=== PATIENT | male | born 1985 | race Two or more races ===

== ENCOUNTER 2019-12-17 03:18 | Inpatient (IN) | payer MEDICAID, OTHER ==
[~2019-12-17] VITALS: Ht 172.7 cm; Wt 92.2 kg
[2019-12-17] MEDS ORDERED: LORazepam 2 MG/ML VIAL IM ONE ×2 (03:30→16:15)
[2019-12-17] MEDS ORDERED: DiphenhydrAMINE HCL 50 MG/ML VIAL IM ONE ×2 (03:30→16:15)
[2019-12-17] MEDS ORDERED: HALOPERIDOL LACTATE 5 MG/ML VIAL IM ONE ×2 (03:30→16:15)
[2019-12-17] MEDS ORDERED: LORazepam 2 MG TABLET PO PRN (05:45)
[2019-12-17] MEDS ORDERED: ZOLPIDEM TARTRATE 10 MG TABLET PO PRN (05:45)
[2019-12-17] MEDS ORDERED: HALOPERIDOL 5 MG TABLET PO PRN (05:45)
[2019-12-17] MEDS ORDERED: RISP4 PO (08:03)
[2019-12-17] MEDS ORDERED: DIVA125SP PO (08:03)
[2019-12-17] MEDS ORDERED: BENZ2TAB10 PO (08:03)
[2019-12-17 10:21] LABS: BASOPHILS % (AUTO) 0.3 % (0.0-2.0); EOSINOPHILS % (AUTO) 0.6 % (1.0-6.0); HEMATOCRIT 44.3 % (41-53); HEMOGLOBIN 15.3 g/dL (13.5-17.5); LYMPHOCYTES # (AUTO) 1.7 K/uL (1.0-4.8); MEAN CORPUSCULAR HEMOGLOBIN 32.4 pg (26.0-34.0); MEAN CORPUSCULAR HGB CONC 34.5 G/dL (31.0-37.0); MEAN CORPUSCULAR VOLUME 94 fL (80-100); MONOCYTES # (AUTO) 0.8 K/uL (0.1-1.0); MONOCYTES % (AUTO) 10.1 % (2.0-9.0); NEUTROPHILS # (AUTO) 5.7 K/uL (1.8-7.7); PLATELET COUNT (AUTO) 287 K/uL (150-450); RED BLOOD CELL COUNT(AUTO) 4.73 MIL/uL (4.50-5.90); RED CELL DISTRIBUTION WIDTH 12.5 % (11.5-14.5)
[2019-12-17 10:27] LABS: ANION GAP 12 mmol/L (8-16); CALCIUM, TOTAL 9.4 mg/dL (8.8-10.5); CARBON DIOXIDE 25 mmol/L (22-29); CHLORIDE 101 mmol/L (98-107); CREATININE 1.05 mg/dL (0.60-1.30); GLOMERULAR FILTR. RATE CALC > 60 mL/min (>60); GLUCOSE,RANDOM 86 mg/dL (70-110); POTASSIUM 3.5 mmol/L (3.5-5.1); SODIUM SERUM 138 mmol/L (136-145); UREA NITROGEN, BLOOD 14 mg/dL (7-18)
[2019-12-17 10:32] LABS: SALICYLATE 1.2 mg/dL (2.8-20.0)
[2019-12-17 10:33] LABS: ACETAMINOPHEN < 2 mcg/mL (10-30); ALANINE AMINOTRANSFERASE 98 U/L (12-78); ALBUMIN 4.2 g/dL (3.4-5.0); ALKALINE PHOSPHATASE 80 U/L (46-116); ASPARTATE AMINOTRANSFERASE 104 U/L (15-37); TOTAL PROTEIN, SERUM 7.9 g/dL (6.4-8.2)
[2019-12-17 11:28] VITALS: BP 137/85
[2019-12-17] MEDS: BACITRACIN 28.4 GM OINTMENT TP SCH (16:09)
[2019-12-17] MEDS ORDERED: DiphenhydrAMINE HCL 50 MG/ML VIAL ONE (16:18)
[2019-12-17] MEDS ORDERED: LORazepam 2 MG/ML VIAL ONE (16:18)
[2019-12-17] MEDS ORDERED: HALOPERIDOL LACTATE 5 MG/ML VIAL ONE (16:18)
[2019-12-17] MEDS ORDERED: ONDANSETRON HCL 4 MG TABLET PO PRN (21:15)
[2019-12-17] MEDS ORDERED: LOPERAMIDE HCL 2 MG CAPSULE PO PRN (21:15)
[2019-12-17] MEDS ORDERED: MAG HYDROX/AL HYDROX/SIMETH ES 30 ML SUSPENSION UDCUP PO PRN (21:15)
[2019-12-17] MEDS ORDERED: ALBUTEROL SULFATE HFA 90 MCG/PUFF 8 GM INHALER IH PRN (21:15)
[2019-12-17] MEDS ORDERED: IBUPROFEN 400 MG TABLET PO PRN (21:15)
[2019-12-17] MEDS ORDERED: GuaiFENesin/D-METHORPHAN [SUGAR-FREE] 200-20MG/10 ML SYRUP UDCUP PO PRN (21:15)
[2019-12-17] MEDS ORDERED: CloNIDine HCL 0.1 MG TABLET PO PRN (21:15)
[2019-12-17] MEDS ORDERED: ACETAMINOPHEN 325 MG TABLET PO PRN (21:15)
[2019-12-17] MEDS ORDERED: MAGNESIUM HYDROXIDE SUSPENSION 30 ML UDCUP PO PRN (21:15)
[2019-12-17] MEDS ORDERED: PETROLATUM,WHITE 28 GM JELLY TP PRN (21:15)
[2019-12-17] MEDS ORDERED: NICOTINE 14 MG/24 HOUR PATCH TD PRN (21:15)
[2019-12-17] MEDS ORDERED: DOCUSATE SODIUM 100 MG CAPSULE PO PRN (21:15)
[2019-12-18] MEDS: RisperiDONE 3 MG TABLET PO SCH ×2 (09:00→16:21)
[2019-12-18] MEDS: DIVALPROEX SODIUM 500 MG DR TABLET PO SCH ×2 (09:00→16:21)
[2019-12-18] MEDS: BACITRACIN 28.4 GM OINTMENT TP SCH ×2 (09:00→16:21)
[2019-12-18] MEDS: BENZTROPINE MESYLATE 2 MG TABLET PO SCH (09:00)
[2019-12-18] MEDS ORDERED: DIVA-78 PO (20:03)
[2019-12-19] MEDS: RisperiDONE 3 MG TABLET PO SCH ×2 (09:00→17:00)
[2019-12-19] MEDS: BACITRACIN 28.4 GM OINTMENT TP SCH ×2 (09:00→16:12)
[2019-12-19] MEDS: BENZTROPINE MESYLATE 2 MG TABLET PO SCH (09:00)
[2019-12-20 08:00] VITALS: BP 110/68
[2019-12-20] MEDS: BACITRACIN 28.4 GM OINTMENT TP SCH ×2 (08:55→16:12)
[2019-12-20] MEDS: RisperiDONE 3 MG TABLET PO SCH ×2 (08:56→16:11)
[2019-12-20] MEDS: BENZTROPINE MESYLATE 2 MG TABLET PO SCH (08:56)
[2019-12-20 16:10] VITALS: BP 121/73
[2019-12-21] MEDS: BACITRACIN 28.4 GM OINTMENT TP SCH ×2 (09:00→16:25)
[2019-12-21] MEDS: RisperiDONE 3 MG TABLET PO SCH ×2 (09:00→16:33)
[2019-12-21] MEDS: BENZTROPINE MESYLATE 2 MG TABLET PO SCH (09:00)
[2019-12-21 09:30] VITALS: BP 153/107
[2019-12-22] MEDS: BACITRACIN 28.4 GM OINTMENT TP SCH ×2 (09:00→18:13)
[2019-12-22] MEDS: RisperiDONE 3 MG TABLET PO SCH ×2 (09:00→17:00)
[2019-12-22] MEDS: BENZTROPINE MESYLATE 2 MG TABLET PO SCH (09:00)
[2019-12-22 20:12] VITALS: BP 141/88
[2019-12-23 08:15] VITALS: BP 125/93
[2019-12-23] MEDS: BENZTROPINE MESYLATE 2 MG TABLET PO SCH (09:00)
[2019-12-23] MEDS: RisperiDONE 3 MG TABLET PO SCH (09:00)
[2019-12-23] MEDS: BACITRACIN 28.4 GM OINTMENT TP SCH (09:06)
[2019-12-23] MEDS ORDERED: BENZ2TAB10 PO (12:51)
[2019-12-23] MEDS ORDERED: RISP3 PO (12:51)
[2019-12-23] MEDS ORDERED: NALT50TA PO (12:51)
== END 2019-12-23 14:00 | disposition home or self-care (01) | DRG 885 ==
LOC: EMS 03:18 → 3EC 10:25
PROVIDERS: ADMIT Psychiatry & Neurology Psychiatry; ATTEND Psychiatry & Neurology Psychiatry
DX: F20.9 Schizophrenia, unspecified (principal); F41.9 Anxiety disorder, unspecified; G89.29 Other chronic pain; Z59.0 Homelessness; Z91.19 Patient's noncompliance with other medical treatment and regimen
CPT/HCPCS: 51702; 70450; 96372; G0480; G0481; J1200; J1630; J2060

== ENCOUNTER 2020-01-24 12:41 | Inpatient (IN) | payer MEDICAID, OTHER ==
[~2020-01-24] VITALS: Ht 180.3 cm; Wt 89.8 kg
[~2020-01-24 12:41] MED LIST: BENZ2TAB10 PO; NALT50TA PO; RISP3 PO
[2020-01-24] MEDS ORDERED: DiphenhydrAMINE HCL 50 MG/ML VIAL IM ONE (14:45)
[2020-01-24] MEDS ORDERED: HALOPERIDOL LACTATE 5 MG/ML VIAL IM ONE (14:45)
[2020-01-24] MEDS ORDERED: LORazepam 2 MG/ML VIAL IM ONE (14:45)
[2020-01-24 14:46] LABS: BASOPHILS % (AUTO) 0.2 % (0.0-2.0); EOSINOPHILS % (AUTO) 0.3 % (1.0-6.0); HEMATOCRIT 41.8 % (41-53); HEMOGLOBIN 13.8 g/dL (13.5-17.5); LYMPHOCYTES # (AUTO) 1.2 K/uL (1.0-4.8); LYMPHOCYTES % (AUTO) 14.4 % (22.0-44.0); MEAN CORPUSCULAR HEMOGLOBIN 31.2 pg (26.0-34.0); MEAN CORPUSCULAR VOLUME 95 fL (80-100); MONOCYTES # (AUTO) 0.5 K/uL (0.1-1.0); MONOCYTES % (AUTO) 6.5 % (2.0-9.0); NEUTROPHILS # (AUTO) 6.5 K/uL (1.8-7.7); NEUTROPHILS % (AUTO) 78.6 % (40.0-70.0); PLATELET COUNT (AUTO) 367 K/uL (150-450); RED BLOOD CELL COUNT(AUTO) 4.43 MIL/uL (4.50-5.90); RED CELL DISTRIBUTION WIDTH 12.9 % (11.5-14.5)
[2020-01-24 14:58] LABS: ANION GAP 19 mmol/L (8-16); CALCIUM, TOTAL 9.9 mg/dL (8.8-10.5); CARBON DIOXIDE 22 mmol/L (22-29); CHLORIDE 99 mmol/L (98-107); CREATININE 1.54 mg/dL (0.60-1.30); GLOMERULAR FILTR. RATE CALC 52 mL/min (>60); GLUCOSE,RANDOM 165 mg/dL (70-110); POTASSIUM 3.3 mmol/L (3.5-5.1); SODIUM SERUM 140 mmol/L (136-145); UREA NITROGEN, BLOOD 13 mg/dL (7-18)
[2020-01-24 15:06] LABS: ALANINE AMINOTRANSFERASE 74 U/L (12-78); ALBUMIN 4.6 g/dL (3.4-5.0); ALKALINE PHOSPHATASE 118 U/L (46-116); ASPARTATE AMINOTRANSFERASE 47 U/L (15-37); BILIRUBIN,TOTAL 0.8 mg/dL (0.1-1.0); TOTAL PROTEIN, SERUM 8.4 g/dL (6.4-8.2)
[2020-01-24] MEDS ORDERED: ZOLPIDEM TARTRATE 10 MG TABLET PO PRN (16:15)
[2020-01-24] MEDS ORDERED: LORazepam 2 MG TABLET PO PRN (16:15)
[2020-01-24] MEDS ORDERED: HALOPERIDOL 5 MG TABLET PO PRN (16:15)
[2020-01-24] MEDS: RisperiDONE 3 MG TABLET PO SCH (20:20)
[2020-01-25 08:05] VITALS: BP 125/88
[2020-01-25] MEDS: RisperiDONE 3 MG TABLET PO SCH ×2 (08:24→16:52)
[2020-01-25] MEDS ORDERED: BENZTROPINE MESYLATE 2 MG TABLET PO SCH (09:00)
[2020-01-25 16:13] VITALS: BP 113/72
[2020-01-25] MEDS: BENZTROPINE MESYLATE 2 MG TABLET PO SCH (16:52)
[2020-01-26 08:00] VITALS: BP 109/68
[2020-01-26] MEDS: RisperiDONE 3 MG TABLET PO SCH ×3 (09:00→17:39)
[2020-01-26] MEDS: BENZTROPINE MESYLATE 2 MG TABLET PO SCH ×3 (09:00→17:39)
[2020-01-26 16:29] VITALS: BP 128/90
[2020-01-27 08:01] VITALS: BP 139/90
[2020-01-27] MEDS: RisperiDONE 3 MG TABLET PO SCH (08:06)
[2020-01-27] MEDS: BENZTROPINE MESYLATE 2 MG TABLET PO SCH (08:06)
[2020-01-27] MEDS ORDERED: BENZ2TAB10 PO (10:51)
[2020-01-27] MEDS ORDERED: RISP3 PO (10:51)
== END 2020-01-27 13:30 | disposition home or self-care (01) | DRG 885 ==
LOC: EMS 12:41 → 3EC 20:07
PROVIDERS: ADMIT Psychiatry & Neurology Psychiatry; ATTEND Psychiatry & Neurology Psychiatry
DX: F25.0 Schizoaffective disorder, bipolar type (principal); N17.9 Acute kidney failure, unspecified; E87.6 Hypokalemia; F41.9 Anxiety disorder, unspecified; G89.4 Chronic pain syndrome; Z59.0 Homelessness; Z91.19 Patient's noncompliance with other medical treatment and regimen; F19.90 Other psychoactive substance use, unspecified, uncomplicated; R74.0 Nonspecific elevation of levels of transaminase and lactic acid dehydrogenase [LDH]; R73.9 Hyperglycemia, unspecified
CPT/HCPCS: G0480; J1200; J1630; J2060

== ENCOUNTER 2020-02-14 12:27 | Inpatient (IN) | payer MEDICAID, OTHER ==
[~2020-02-14] VITALS: Ht 165.1 cm; Wt 87.5 kg
[~2020-02-14 12:27] MED LIST changes: -NALT50TA PO
[2020-02-14] MEDS ORDERED: HALOPERIDOL LACTATE 5 MG/ML VIAL IM ONE (14:00)
[2020-02-14] MEDS ORDERED: LORazepam 2 MG/ML VIAL IM ONE (14:00)
[2020-02-14] MEDS ORDERED: DiphenhydrAMINE HCL 50 MG/ML VIAL IM ONE (14:00)
[2020-02-14] MEDS ORDERED: ZOLPIDEM TARTRATE 10 MG TABLET PO PRN (15:45)
[2020-02-14] MEDS ORDERED: LORazepam 2 MG TABLET PO PRN (15:45)
[2020-02-14] MEDS ORDERED: HALOPERIDOL 5 MG TABLET PO PRN (15:45)
[2020-02-14] MEDS: BENZTROPINE MESYLATE 1 MG TABLET PO SCH ×2 (17:00→17:59)
[2020-02-14] MEDS ORDERED: INFLUENZA VIRUS VACCINE QVS 2019-20 (3YR+)/PF 60 MCG/0.5 ML SYRINGE IM ONE (17:30)
[2020-02-14] MEDS ORDERED: RisperiDONE 3 MG TABLET PO SCH (21:00)
[2020-02-15 05:18] VITALS: BP 138/97
[2020-02-15] MEDS: BENZTROPINE MESYLATE 1 MG TABLET PO SCH ×2 (09:00→16:23)
[2020-02-15 09:36] VITALS: BP 134/78
[2020-02-15] MEDS ORDERED: ACETAMINOPHEN 325 MG TABLET PO PRN (11:15)
[2020-02-15] MEDS ORDERED: GuaiFENesin/D-METHORPHAN [SUGAR-FREE] 200-20MG/10 ML SYRUP UDCUP PO PRN (11:15)
[2020-02-15] MEDS ORDERED: RisperiDONE 1 MG TABLET PO PRN (11:15)
[2020-02-15] MEDS ORDERED: PROMETHAZINE HCL 25 MG TABLET PO PRN (11:15)
[2020-02-15] MEDS ORDERED: LOPERAMIDE HCL 2 MG CAPSULE PO PRN (11:15)
[2020-02-15] MEDS ORDERED: MAGNESIUM HYDROXIDE SUSPENSION 30 ML UDCUP PO PRN (11:15)
[2020-02-15] MEDS ORDERED: TUBERCULIN, PURIFIED PROTEIN DERIVATIVE 5 TU/0.1 ML SYRINGE ID ONE (11:15)
[2020-02-15] MEDS ORDERED: HydrOXYzine PAMOATE 50 MG CAPSULE PO PRN (11:15)
[2020-02-15] MEDS ORDERED: PALIPERIDONE PALMITATE 234 MG/1.5 ML SYRINGE IM ONE (12:00)
[2020-02-15] MEDS ORDERED: PALIPERIDONE 1.5 MG ER TABLET PO PRN (12:00)
[2020-02-15] MEDS: THIAMINE HCL 100 MG TABLET PO SCH (16:23)
[2020-02-15 17:11] VITALS: BP 110/79
[2020-02-15] MEDS: PALIPERIDONE 3 MG ER TABLET PO SCH (20:21)
[2020-02-16] MEDS: BENZTROPINE MESYLATE 1 MG TABLET PO SCH ×2 (08:52→16:07)
[2020-02-16] MEDS: THIAMINE HCL 100 MG TABLET PO SCH ×2 (08:53→16:07)
[2020-02-16] MEDS: FOLIC ACID 1 MG TABLET PO SCH (08:53)
[2020-02-16] MEDS: MULTIVITAMINS WITH MINERALS, THERAPEUTIC TABLET PO SCH (08:53)
[2020-02-16] MEDS: PALIPERIDONE 3 MG ER TABLET PO SCH (20:05)
[2020-02-17] MEDS: MAG HYDROX/AL HYDROX/SIMETH ES 30 ML SUSPENSION UDCUP PO PRN ×2 (03:54→15:48)
[2020-02-17] MEDS: FOLIC ACID 1 MG TABLET PO SCH (09:00)
[2020-02-17] MEDS: THIAMINE HCL 100 MG TABLET PO SCH ×2 (09:00→16:25)
[2020-02-17] MEDS: BENZTROPINE MESYLATE 1 MG TABLET PO SCH ×2 (09:00→16:25)
[2020-02-17] MEDS: MULTIVITAMINS WITH MINERALS, THERAPEUTIC TABLET PO SCH (09:00)
[2020-02-17 16:50] VITALS: BP 123/76
[2020-02-17] MEDS ORDERED: PALIPERIDONE PALMITATE 234 MG/1.5 ML SYRINGE IM ONE (18:45)
[2020-02-17] MEDS: PALIPERIDONE 3 MG ER TABLET PO SCH (20:31)
[2020-02-18 08:29] VITALS: BP 133/74
[2020-02-18] MEDS: THIAMINE HCL 100 MG TABLET PO SCH ×2 (09:00→16:17)
[2020-02-18] MEDS: BENZTROPINE MESYLATE 1 MG TABLET PO SCH ×2 (09:00→16:17)
[2020-02-18] MEDS: FOLIC ACID 1 MG TABLET PO SCH (09:00)
[2020-02-18] MEDS: MULTIVITAMINS WITH MINERALS, THERAPEUTIC TABLET PO SCH (09:00)
[2020-02-19] MEDS: THIAMINE HCL 100 MG TABLET PO SCH ×2 (09:00→16:01)
[2020-02-19] MEDS: FOLIC ACID 1 MG TABLET PO SCH (09:00)
[2020-02-19] MEDS: MULTIVITAMINS WITH MINERALS, THERAPEUTIC TABLET PO SCH (09:00)
[2020-02-19] MEDS ORDERED: PALIPERIDONE PALMITATE 156 MG/ML SYRINGE IM ONE (09:00)
[2020-02-20 08:37] VITALS: BP 133/67
[2020-02-20] MEDS: MULTIVITAMINS WITH MINERALS, THERAPEUTIC TABLET PO SCH (09:56)
[2020-02-20] MEDS: THIAMINE HCL 100 MG TABLET PO SCH ×2 (09:56→16:42)
[2020-02-20] MEDS: FOLIC ACID 1 MG TABLET PO SCH (09:56)
[2020-02-21] MEDS: THIAMINE HCL 100 MG TABLET PO SCH ×2 (08:53→16:24)
[2020-02-21] MEDS: MULTIVITAMINS WITH MINERALS, THERAPEUTIC TABLET PO SCH (08:53)
[2020-02-21] MEDS: FOLIC ACID 1 MG TABLET PO SCH (08:53)
[2020-02-21] MEDS ORDERED: PALIPERIDONE PALMITATE 156 MG/ML SYRINGE IM ONE (09:00)
[2020-02-21 16:16] VITALS: BP 131/82
[2020-02-22] MEDS: MULTIVITAMINS WITH MINERALS, THERAPEUTIC TABLET PO SCH (08:02)
[2020-02-22] MEDS: FOLIC ACID 1 MG TABLET PO SCH (08:02)
[2020-02-22] MEDS: THIAMINE HCL 100 MG TABLET PO SCH ×2 (08:02→16:13)
[2020-02-22] MEDS ORDERED: PALI117D IM (16:57)
[2020-02-23 02:44] VITALS: BP 121/64
[2020-02-23] MEDS: THIAMINE HCL 100 MG TABLET PO SCH (08:02)
[2020-02-23] MEDS: FOLIC ACID 1 MG TABLET PO SCH (08:02)
[2020-02-23] MEDS: MULTIVITAMINS WITH MINERALS, THERAPEUTIC TABLET PO SCH (08:02)
== END 2020-02-23 09:15 | disposition home or self-care (01) | DRG 885 ==
LOC: EMS 12:28 → 3EC 15:52
PROVIDERS: ADMIT Psychiatry & Neurology Psychiatry; ATTEND Psychiatry & Neurology Psychiatry
DX: F25.0 Schizoaffective disorder, bipolar type (principal); G89.4 Chronic pain syndrome; F10.10 Alcohol abuse, uncomplicated; F41.9 Anxiety disorder, unspecified; Z91.14 Patient's other noncompliance with medication regimen; Z91.19 Patient's noncompliance with other medical treatment and regimen
CPT/HCPCS: 87081; J1200; J1630; J2060

== ENCOUNTER 2020-08-14 13:40 | Emergency (ER) | payer MEDICAID, OTHER ==
[~2020-08-14] VITALS: Ht 175.3 cm; Wt 86.4 kg
[~2020-08-14 13:40] MED LIST changes: -BENZ2TAB10 PO; +PALI117D IM; -RISP3 PO
[2020-08-14 13:50] VITALS: BP 148/96
== END 2020-08-14 15:16 | disposition home or self-care (01) ==
LOC: EMS 13:49
DX: F20.9 Schizophrenia, unspecified (principal)
CPT/HCPCS: Z7502

== ENCOUNTER 2020-08-21 15:22 | Inpatient (IN) | payer MEDICAID, OTHER ==
[~2020-08-21] VITALS: Ht 165.1 cm; Wt 87.1 kg
[2020-08-21] MEDS ORDERED: LORazepam 2 MG/ML VIAL IM ONE (17:00)
[2020-08-21] MEDS ORDERED: HALOPERIDOL LACTATE 5 MG/ML VIAL IM ONE (17:00)
[2020-08-21] MEDS ORDERED: DiphenhydrAMINE HCL 50 MG/ML VIAL IM ONE (17:00)
[2020-08-21 19:20] LABS: COVID AG,FIA SOURCE NASOPHARYNGEAL
[2020-08-21] MEDS ORDERED: HALOPERIDOL 5 MG TABLET PO PRN (19:30)
[2020-08-21] MEDS ORDERED: ZOLPIDEM TARTRATE 10 MG TABLET PO PRN (19:30)
[2020-08-21] MEDS ORDERED: LORazepam 2 MG TABLET PO PRN (19:30)
[2020-08-21] MEDS ORDERED: IBUPROFEN 400 MG TABLET PO PRN (23:45)
[2020-08-21] MEDS ORDERED: MAG HYDROX/AL HYDROX/SIMETH ES 30 ML SUSPENSION UDCUP PO PRN (23:45)
[2020-08-21] MEDS ORDERED: LOPERAMIDE HCL 2 MG CAPSULE PO PRN (23:45)
[2020-08-21] MEDS ORDERED: ACETAMINOPHEN 325 MG TABLET PO PRN (23:45)
[2020-08-21] MEDS ORDERED: DOCUSATE SODIUM 100 MG CAPSULE PO PRN (23:45)
[2020-08-21] MEDS ORDERED: GuaiFENesin/D-METHORPHAN [SUGAR-FREE] 200-20MG/10 ML SYRUP UDCUP PO PRN (23:45)
[2020-08-21] MEDS ORDERED: MAGNESIUM HYDROXIDE SUSPENSION 30 ML UDCUP PO PRN (23:45)
[2020-08-21] MEDS ORDERED: ONDANSETRON HCL 4 MG TABLET PO PRN (23:45)
[2020-08-21] MEDS ORDERED: PETROLATUM,WHITE 28 GM JELLY TP PRN (23:45)
[2020-08-21] MEDS ORDERED: CloNIDine HCL 0.1 MG TABLET PO PRN (23:45)
[2020-08-21] MEDS ORDERED: ALBUTEROL SULFATE HFA 90 MCG/PUFF 8 GM INHALER IH PRN (23:45)
[2020-08-21] MEDS ORDERED: NICOTINE 14 MG/24 HOUR PATCH TD PRN (23:45)
[2020-08-22 05:13] VITALS: BP 124/84
[2020-08-22] MEDS ORDERED: PALIPERIDONE PALMITATE 156 MG/ML SYRINGE IM ONE (10:45)
[2020-08-24 08:15] VITALS: BP 117/72
== END 2020-08-24 17:44 | disposition home or self-care (01) | DRG 750 ==
LOC: EMS 15:22 → B3A 19:17
PROVIDERS: ADMIT Psychiatry & Neurology Child & Adolescent Psychiatry; ATTEND Psychiatry & Neurology Child & Adolescent Psychiatry
DX: F25.1 Schizoaffective disorder, depressive type (principal); F10.10 Alcohol abuse, uncomplicated; G89.4 Chronic pain syndrome; F17.210 Nicotine dependence, cigarettes, uncomplicated; F41.9 Anxiety disorder, unspecified; F99 Mental disorder, not otherwise specified; F19.10 Other psychoactive substance abuse, uncomplicated; R03.0 Elevated blood-pressure reading, without diagnosis of hypertension; Z79.899 Other long term (current) drug therapy; Z03.818 Encounter for observation for suspected exposure to other biological agents ruled out
CPT/HCPCS: 87426; 99291; J1200; J1630; J2060